=== PATIENT | female | born 1970 | race Caucasian/White ===

== ENCOUNTER 2023-09-10 09:58 | Emergency (ER) | payer BC, OTHER ==
[~2023-09-10] VITALS: Ht 160 cm; Wt 86.7 kg
[~2023-09-10 09:58] MED LIST: [UNRECOGNIZED DRUG - CODE] PO
[2023-09-10 10:22] VITALS: BP 128/72; TEMP 99.1
[2023-09-10 10:40] VITALS: PULSE 78
[2023-09-10] MEDS ORDERED: methylPREDNISolone SOD SUCC 125 MG/2 ML VL IM ONE (11:15)
[2023-09-10] MEDS ORDERED: ALBUTEROL SULF 2.5 MG/0.5ML(0.5%) NEB SOLN NEB ONE (11:15)
[2023-09-10] MEDS ORDERED: cefTRIAXone SOD 1,000 MG VL IM ONE (11:15)
[2023-09-10] MEDS ORDERED: IPRATROPIUM BROM 0.5 MG/2.5ML INH SOL NEB ONE (11:15)
[2023-09-10] MEDS ORDERED: ALBUTEROL MEDNEB 2.5 mg/3ml NEB ONE (11:19)
[2023-09-10 11:33] VITALS: RESP 18; O2SAT 99
[2023-09-10 11:34] LABS: Basophils # (auto) 0.1 10 ^3/uL (0-0.2); Basophils % (auto) 0.8 % (0.0-2.0); Eosinophils # (auto) 0.4 10 ^3/uL (0-0.8); Eosinophils % (auto) 4.9 % (0.0-7.0); Hematocrit 41.3 % (36.0-46.0); Hemoglobin 13.7 g/dL (12.2-16.2); Lymphocytes # (auto) 2.7 10 ^3/uL (0.4-5.4); Lymphocytes % (auto) 35.2 % (10.0-50.0); Mean Corpuscular Hemoglobin 30.2 pg (28.0-32.0); Mean Corpuscular Hgb Conc. 33.2 g/dL (32.0-36.0); Monocytes # (auto) 0.5 10 ^3/uL (0-1.3); Monocytes % (auto) 6.1 % (0.0-12.0); Neutrophils # (auto) 4.1 10 ^3/uL (1.6-8.6); Nucleated Red Blood Cells % 0.1 %; Red Blood Cells 4.54 10^6/uL (4.0-5.20); Red Cell Distribution Width 12.4 % (11.8-14.3); White Blood Cell 7.7 10^3/uL (4.4-10.8)
[2023-09-10] MEDS ORDERED: LIDOCAINE 1% HCL (LOCAL ANESTH.) INJ 20ML MDV ID ONE (11:45)
[2023-09-10 12:31] LABS: COVID19 ANTIGEN SOFIA FIA NEGATIVE (NEGATIVE); Rapid Influenza A Negative (Negative); Rapid Influenza B Negative (Negative)
[2023-09-10 12:37] LABS: Anion Gap 7 (5-15); Calcium 8.9 mg/dL (8.5-10.1); Carbon Dioxide 25 mmol/L (20-30); Chloride 109 mmol/L (98-107); Sodium 141 mmol/L (136-145)
[2023-09-10 12:43] LABS: BUN/Creatinine Ratio 10.2 (10.0-20.0); Blood Urea Nitrogen 9 mg/dL (9-23); Glucose 99 mg/dL (74-106)
[2023-09-10] MEDS ORDERED: PRED20TA2 PO (13:00)
[2023-09-10] MEDS ORDERED: GUAI100S6 PO (13:00)
== END 2023-09-10 13:09 | disposition home or self-care (01) ==
LOC: ER 09:58
DX: J20.9 Acute bronchitis, unspecified (principal); R06.02 Shortness of breath; Z98.890 Other specified postprocedural states; Z20.822 Contact with and (suspected) exposure to COVID-19
CPT/HCPCS: 36415; 71046; 80048; 85025; 87426; 87804; 93005; 94640; 96372; 99285; J0696; J2001; J2930; J7644

== ENCOUNTER → 2024-03-10 | Outpatient (CLI) | payer BC ==
[~2024-03-10] MED LIST changes: +GUAI100S6 PO; +PRED20TA2 PO
[2024-03-10 06:34] LABS: Basophils # (auto) 0.1 10 ^3/uL (0-0.2); Basophils % (auto) 0.9 % (0.0-2.0); Eosinophils # (auto) 0.6 10 ^3/uL (0-0.8); Eosinophils % (auto) 9.5 % (0.0-7.0); Hemoglobin 13.5 g/dL (12.2-16.2); Lymphocytes # (auto) 2.8 10 ^3/uL (0.4-5.4); Lymphocytes % (auto) 46.5 % (10.0-50.0); Mean Corpuscular Hemoglobin 29.9 pg (28.0-32.0); Mean Corpuscular Volume 90.7 fL (80.0-100.0); Monocytes # (auto) 0.4 10 ^3/uL (0-1.3); Monocytes % (auto) 6.4 % (0.0-12.0); Neutrophils # (auto) 2.2 10 ^3/uL (1.6-8.6); Neutrophils % (auto) 36.7 % (37.0-80.0); Nucleated Red Blood Cells % 0.1 %; Red Blood Cells 4.52 10^6/uL (4.0-5.20); Red Cell Distribution Width 12.4 % (11.8-14.3); White Blood Cell 6.1 10^3/uL (4.4-10.8)
[2024-03-10 07:35] LABS: Alanine Aminotransferase 15 U/L (7-40); Albumin 4.3 g/dL (3.2-4.8); Alkaline Phosphatase 71 U/L (46-116); Anion Gap 6 (5-15); Aspartate Aminotransferase 12 U/L (13-40); Blood Urea Nitrogen 15 mg/dL (9-23); Calcium 9.4 mg/dL (8.7-10.4); Carbon Dioxide 25 mmol/L (20-30); Chloride 109 mmol/L (98-107); Glucose 109 mg/dL (74-106); Potassium 4.1 mmol/L (3.5-5.1); Sodium 140 mmol/L (136-145)
[2024-03-10 07:36] LABS: Bilirubin, Total 0.6 mg/dL (0.2-1.0); Total Protein 6.9 g/dL (5.7-8.2)
[2024-03-10 07:56] LABS: Triglycerides 129 mg/dL (< 150)
[2024-03-10 07:57] LABS: LDL Cholesterol 137 mg/dL (< 100)
[2024-03-10 07:58] LABS: Cholesterol 220 mg/dL (< 200); HDL Cholesterol 62 mg/dL (40-59)
== END | disposition home or self-care (01) ==
LOC: LAB 06:02
PROVIDERS: ATTEND Nurse Practitioner Family
DX: I10 Essential (primary) hypertension (principal)
CPT/HCPCS: 36415; 80053; 80061; 84439; 84443; 85025